=== PATIENT | female | born 1970 | race Caucasian/White ===

== ENCOUNTER 2018-03-14 08:45 | Day surgery (SDC) | payer BC ==
[2018-03-07 10:40] LABS: BASOPHILS % (AUTO) 0.5 % (0-1); EOSINOPHILS # (AUTO) 0.3 X10'3 (0-0.9); EOSINOPHILS % (AUTO) 3.9 % (0-6); LYMPHOCYTES # (AUTO) 2.7 X10'3 (1.1-4.8); LYMPHOCYTES % (AUTO) 32.4 % (21-51); MEAN CORPUSCULAR HGB CONC 33.8 % (33.0-36.5); MEAN PLATELET VOLUME 9.1 FL (7.4-10.4); MONOCYTES # (AUTO) 0.7 X10'3 (0-0.9); MONOCYTES % (AUTO) 8.3 % (2-12); NEUTROPHILS # (AUTO) 4.6 X10'3 (1.8-7.7); NEUTROPHILS % (AUTO) 54.9 % (42-75); PRE OP HEMATOCRIT 43.7 % (35.0-45.0); PRE OP HEMOGLOBIN 14.7 g/dL (12.0-16.0); PRE OP PLATELET COUNT 245 X10'3 (140-440); RED BLOOD COUNT 5.08 X10'6 (4.20-5.60); RED CELL DISTRIBUTION WIDTH 13.1 % (11.5-14.5)
[2018-03-07 11:05] LABS: HCG SERUM QL NEGATIVE
[2018-03-07 12:36] LABS: ALBUMIN 3.6 G/DL (3.4-5.0); ALKALINE PHOSPHATASE 80 IU/L (46-116); BLOOD UREA NITROGEN 14 MG/DL (7-18); BUN/CREATININE RATIO 16.7 (6.6-38.0); CALCIUM 8.9 MG/DL (8.5-10.1); CHLORIDE 105 MMOL/L (99-107); CREATININE 0.84 MG/DL (0.40-0.90); PRE OP ALT 34 U/L (30-65); PRE OP ANION GAP 4 (8-16); PRE OP AST 15 U/L (10-37); PRE OP BILIRUB, TOTAL 0.4 MG/DL (0.0-1.0); PRE OP GLUCOSE 92 MG/DL (70-104); PRE OP SODIUM 137 MMOL/L (135-145); TOTAL CARBON DIOXIDE 28.4 MMOL/L (24-32); TOTAL PROTEIN 7.2 G/DL (6.4-8.2); eGFR 73 ML/MIN
[2018-03-14] VITALS (10 sets, daily range): BP systolic 130–158; BP diastolic 90–100
[~2018-03-14] VITALS: Ht 160 cm; Wt 81.6 kg
[~2018-03-14 08:45] MED LIST: Cefazolin 2GM/50ML dext iso,osmotic IVPB IV ONE; MULT1TAB74 PO; famotidine 20mg tablet PO ONE; ringers solution, lacted 1,000 ML IV SCH
[2018-03-14] MEDS ORDERED: NAPR220C15 PO (09:25)
[2018-03-14] MEDS ORDERED: ringers solution, lacted 1,000 ML IV SCH (10:42)
[2018-03-14] MEDS ORDERED: morphine 4 MG/ML inj SYRINge IV PRN ×2 (10:45)
[2018-03-14] MEDS ORDERED: proCHLORperazine 10 MG/2 ml inj IV PRN (10:45)
[2018-03-14] MEDS ORDERED: ondansetron/PF 4mg/2ml inj IV PRN (10:45)
[2018-03-14] MEDS ORDERED: meperidine/PF 25mg/ml syringe IV PRN ×3 (10:45)
[2018-03-14] MEDS ORDERED: epiNEPHrine 1 mg/ml inj ONE (11:06)
[2018-03-14] MEDS ORDERED: BUPIVAcaine/PF 2.5mg/ml (0.25%) 10ml vial ONE (11:07)
[2018-03-14] MEDS ORDERED: sevoflurane 250ml liquid IH ONE (11:13)
[2018-03-14] MEDS ORDERED: fentaNYL/PF 50MCG/1 ML 2ML syringe ONE (11:17)
[2018-03-14] MEDS ORDERED: propofol inj 20 ML IV ONE (11:18)
[2018-03-14] MEDS ORDERED: midazolam 2 mg/2 ml injection ONE (11:18)
[2018-03-14] MEDS ORDERED: rocuronium 10mg/ml inj IV ONE (11:31)
[2018-03-14] MEDS ORDERED: dexamethasone sod phosphate 4mg/ml inj. ONE (11:33)
[2018-03-14] MEDS ORDERED: ondansetron/PF 4mg/2ml inj ONE (11:33)
[2018-03-14] MEDS ORDERED: neostigmine methylsulfate 1 MG/ML 10ml vial ONE (11:48)
[2018-03-14] MEDS ORDERED: glycopyrrolate 0.2mg/ml inj ONE (11:48)
== END 2018-03-14 13:45 | disposition home or self-care (01) ==
LOC: PAS 08:45
PROVIDERS: ATTEND Obstetrics & Gynecology
DX: Z30.2 Encounter for sterilization (principal); N85.2 Hypertrophy of uterus; I10 Essential (primary) hypertension; E66.9 Obesity, unspecified; Z72.89 Other problems related to lifestyle; Z86.11 Personal history of tuberculosis; Z86.19 Personal history of other infectious and parasitic diseases; Z68.31 Body mass index [BMI] 31.0-31.9, adult; Z98.890 Other specified postprocedural states; Z79.899 Other long term (current) drug therapy
CPT/HCPCS: 36415; 58670; 80053; 84703; 85025; 93005; A6258; A6402; J0171; J0690; J1100; J2250; J2405; J2704; J2710; J3010; J3490; J7120; A7000